=== PATIENT | male | born 2000 | race African-American/Black ===

== ENCOUNTER 2023-05-16 20:51 | Emergency (ER) | payer MEDICAID, OTHER ==
[2023-05-16] MEDS ORDERED: Ibuprofen 800 MG TAB ONE (22:41)
== END 2023-05-16 22:44 ==
LOC: ERS 20:51
DX: M70.22 Olecranon bursitis, left elbow (principal); W21.05XA Struck by basketball, initial encounter; Y93.02 Activity, running; Z55.6 Problems related to health literacy